=== PATIENT | male | born 1960 | race Caucasian/White ===

== ENCOUNTER 2023-11-24 18:28 | Emergency (ER) | payer OTHER, MEDICARE, SELFPAY ==
--- NOTE | 2023-11-24 18:37 | ED.URI ---
HPI - URI/Sore Throat General Chief Complaint: Upper Respiratory Infection Stated Complaint: Sinus Infection Symptoms Time Seen by Provider: 11/24/23 18:56 Source: patient and RN notes reviewed Mode of arrival: ambulatory Limitations: no limitations History of Present Illness HPI Narrative: 63 y/o male presented for c/o cough and chest congestion for over one week. Reports sob when walking into the clinic today. Taking DayQuil and NyQuil. Denies chest pain, palpitations, wheezing, n/v/d/f/c. MD elicited complaint: cough Related Data Home Medications Medication Instructions Recorded Confirmed atorvastatin 20 mg tablet 20 mg PO HS 11/24/23 11/24/23 bupropion HCl 300 mg 24 hr tablet, 300 mg PO QAM 11/24/23 11/24/23 extended release methylphenidate HCl 10 mg tablet 10 mg PO QPM 11/24/23 11/24/23 serdexmethylphenidate 52.3 1 cap PO QAM 11/24/23 11/24/23 mg-dexmethylphenidate 10.4 mg capsule (Azstarys) tadalafil 5 mg tablet 5 mg PO DAILY 11/24/23 11/24/23 tamsulosin 0.4 mg capsule 0.8 mg PO QHS 11/24/23 11/24/23 ticagrelor 60 mg tablet (Brilinta) 60 mg PO BID 11/24/23 11/24/23 zolpidem 5 mg tablet 5 mg PO HS PRN Insomnia 11/24/23 11/24/23 Review of Systems Review of Systems: CONSTITUTIONAL: denies malaise, chills, sweats, fever EYES: Denies visual changes, redness, or discharge ENT: denies rhinorrhea, congestion, sinus pain, otalgia, sore throat CARDIOVASCULAR: Denies chest pain, palpitations, edema RESPIRATORY: Reports cough, dyspnea GASTROINTESTINAL: Denies abdominal pain, nausea, vomiting, diarrhea SKIN: Denies rash or itching MUSCULOSKELETAL: denies myalgia NEUROLOGIC: repors headache [facility] Past Medical History Medical History (Updated 11/24/23 @ 19:14 by Jaja Alcaraz, JONI) CAD (coronary artery disease) Exam Narrative: GENERAL: Ill-appearing, nontoxic no acute distress. HEAD: Normocephalic EYES: PERRLA, conjunctivae clear ENT: Mucous membranes moist. TM pearly ruiz with dull light reflex bilaterally; no tragal tenderness. Oropharynx erythematous without lesions or exudate, no drooling, no hoarseness, no trismus, uvula midline. No tripod positioning, muffled voice, soft palate or pharyngeal wall bulging NECK: Supple. No lymphadenopathy CHEST: Clear to auscultation, breath sounds equal. No wheezing, rhonchi, rales, or stridor. No respiratory distress, speaks in full sentences. HEART: Regular rate and rhythm. No murmur heard. SKIN: Warm, dry, no rash. NEURO: Alert and oriented x3. PSYCH: Normal mood and affect Course Course Emergency Course: Patient is aware of diagnosis, understands and agrees to treatment plan. Anticipatory guidance given. Patient agrees to follow-up as directed and is aware of reasons to seek care at the emergency department. Portions of this record may have been created with voice recognition software Level of Care: Express Care Visit Vital Signs Vital signs: Vital Signs Temperature 98.3 F 11/24/23 18:45 Pulse Rate 100 11/24/23 18:45 Respiratory Rate 16 11/24/23 18:45 Blood Pressure 115/74 11/24/23 18:45 Pulse Oximetry 99 11/24/23 18:45 Temperature 98.3 F 11/24/23 18:45 Pulse Rate 100 11/24/23 18:45 Respiratory Rate 16 11/24/23 18:45 Blood Pressure 115/74 11/24/23 18:45 Pulse Oximetry 99 11/24/23 18:45 reviewed MDM - URI/Sore Throat MDM Narrative Medical decision making narrative: Discussed physical exam findings. Advised supportive measures and signs/symptoms to go to the ER. Pt is appropriate for outpt treatment and f/u. Differential Diagnosis Differential diagnosis: Likely upper respiratory infection, sinusitis and viral infection Discharge Plan Discharge Clinical Impression: Bronchitis Patient Disposition: Home, Self-Care Condition: Stable Instructions: Antibiotic Form, Acute Bronchitis (ED) Additional Instructions: Acute bronchitis can be contagious because it is usually caused by infection w
[2023-11-24 18:45] VITALS: BP 115/74; PULSE 100; RESP 16; TEMP 36.8; O2SAT 99
[2023-11-24 19:02] VITALS: BP 115/74; PULSE 100; RESP 16; TEMP 36.8; O2SAT 99
== END 2023-11-24 19:18 | disposition home or self-care (01) ==
PROVIDERS: Emergency Provider Nurse Practitioner Family
DX: J40 Bronchitis, not specified as acute or chronic (principal); I25.10 Atherosclerotic heart disease of native coronary artery without angina pectoris
CPT/HCPCS: 99213; G0463

== ENCOUNTER 2023-12-03 13:35 | Emergency (ER) | payer OTHER, MEDICARE, SELFPAY ==
--- NOTE | ~2023-12-03 | XR_ITS ---
XR chest 2V Ordering provider: Patricia Garza NP History: 63 years Male with . cough . Comparison: None. FINDINGS: MEDIASTINUM: The cardiac silhouette is not enlarged. LUNGS: No effusions or pneumothorax. Minimal opacification the left lower lobe is noted. OTHER: No free air under the diaphragm. Degenerative changes of the spine. IMPRESSION: Minimal opacification the left lower lobe suggestive of pneumonia. Follow-up advised. Reviewed, dictated and finalized at location A. IMPRESSION: Minimal opacification the left lower lobe suggestive of pneumonia. Follow-up ad vised.
[2023-12-03 14:19] VITALS: BP 123/75; PULSE 101; RESP 16; TEMP 36.8; O2SAT 98
--- NOTE | 2023-12-03 14:44 | ED.URI ---
HPI - URI/Sore Throat General Chief Complaint: Upper Respiratory Infection Stated Complaint: Bronchitis Time Seen by Provider: 12/03/23 14:44 Source: patient Mode of arrival: ambulatory Limitations: no limitations History of Present Illness HPI Narrative: 63-year-old male presents with complaint of cough and chest congestion for approximately 3 weeks. Patient was seen on November 23 and prescribed Augmentin for bronchitis. Has been off approximately 4 days shortness of exertion. Afebrile. All systems reviewed and negative except as noted above. Related Data Home Medications Medication Instructions Recorded Confirmed atorvastatin 20 mg tablet 20 mg PO HS 11/24/23 11/24/23 bupropion HCl 300 mg 24 hr tablet, 300 mg PO QAM 11/24/23 11/24/23 extended release methylphenidate HCl 10 mg tablet 10 mg PO QPM 11/24/23 11/24/23 serdexmethylphenidate 52.3 1 cap PO QAM 11/24/23 11/24/23 mg-dexmethylphenidate 10.4 mg capsule (Azstarys) tadalafil 5 mg tablet 5 mg PO DAILY 11/24/23 11/24/23 tamsulosin 0.4 mg capsule 0.8 mg PO QHS 11/24/23 11/24/23 ticagrelor 60 mg tablet (Brilinta) 60 mg PO BID 11/24/23 11/24/23 zolpidem 5 mg tablet 5 mg PO HS PRN Insomnia 11/24/23 11/24/23 Allergies Allergy/AdvReac Type Severity Reaction Status Date / Time No Known Allergies Allergy Verified 12/03/23 14:51 Review of Systems Review of Systems: CONSTITUTIONAL: Denies fever, chills, or sweats. EYES: Denies visual changes, redness, or discharge. ENT: Denies rhinorrhea, congestion, sore throat, or otalgia. CARDIOVASCULAR: Denies chest pain, palpitations, or edema. RESPIRATORY: Reports cough, chest congestion and dyspnea with exertion. GASTROINTESTINAL: Denies abdominal pain, nausea, vomiting, or diarrhea. GENITOURINARY: Denies dysuria or hematuria. SKIN: Denies rash or itching. MUSCULOSKELETAL: Denies back pain, joint pain, or myalgia. NEUROLOGIC: Denies headache, numbness, or weakness. PSYCHIATRIC: Denies anxiety or depression. All other systems reviewed are negative, except as documented in HPI. [facility] Past Medical History Medical History (Updated 12/03/23 @ 14:50 by Patricai Garza NP) CAD (coronary artery disease) Comments At time of signature, agree with nursing past medical, surgical, social and family history. There is no relevant family history pertinent to the presenting complaint. Exam Narrative: GENERAL: This is a well-nourished, well-developed patient, in no apparent distress. HEAD: normocephalic, atraumatic. EYES: PERRL. Sclera clear/white. Vision is grossly intact. EARS: External ears normal, auditory canals clear and without drainage, TMs normal without perforation. Hearing grossly intact. NOSE: External nose normal with no obvious nasal discharge, nares without redness, no rhinorrhea. THROAT: Mucous membranes moist, posterior pharynx clear. NECK: Neck supple, non-tender without lymphadenopathy, masses or thyromegaly. CARDIOVASCULAR: Regular rate and rhythm without murmurs, gallops, or rubs. RESPIRATORY: Rhonchi to bilateral lower lung heaton on auscultation. Breath sounds equal bilaterally. No wheezes, rales SKIN: warm, Dry, intact with no suspicious lesions or rash, good texture and turgor. NEURO: awake, alert, and oriented to person, place and time. There were no obvious focal neurologic abnormalities. EXTREMITIES: No joint tenderness, effusion, or edema noted. Course Course Level of Care: Express Care Visit Vital Signs Vital signs: Vital Signs Temperature 36.8 C 12/03/23 14:19 Pulse Rate 101 H 12/03/23 14:19 Respiratory Rate 16 12/03/23 14:19 Blood Pressure 123/75 12/03/23 14:19 Pulse Oximetry 98 12/03/23 14:19 Temperature 36.8 C 12/03/23 14:19 Pulse Rate 101 H 12/03/23 14:19 Respiratory Rate 16 12/03/23 14:19 Blood Pressure 123/75 12/03/23 14:19 Pulse Oximetry 98 12/03/23 14:19 Reviewed MDM - URI/Sore Throat MDM Narrative Medical decision m
== END 2023-12-03 15:01 | disposition home or self-care (01) ==
PROVIDERS: Emergency Provider Nurse Practitioner Family
DX: J18.9 Pneumonia, unspecified organism (principal); I25.10 Atherosclerotic heart disease of native coronary artery without angina pectoris
CPT/HCPCS: 71046; 99213; G0463

== ENCOUNTER 2023-12-09 17:21 | Emergency (ER) | payer OTHER, MEDICARE, SELFPAY ==
--- NOTE | ~2023-12-09 | XR_ITS ---
EXAMINATION: XR chest 2V DATE: 12/09/2023 17:44 INDICATION: Cough. Pneumonia. TECHNIQUE: Frontal and lateral views of the chest were obtained. COMPARISON: Chest 2 views 12/03/2023 FINDINGS: There is no pneumonia, pleural effusion, or pneumothorax. The heart size is normal. There i s mild chronic anterior wedging of multiple vertebral bodies. IMPRESSION: 1. No acute cardiopulmonary disease. Reviewed, dictated and finalized at location A.
--- NOTE | 2023-12-09 17:28 | ED.URI ---
HPI - URI/Sore Throat General Chief Complaint: Upper Respiratory Infection Stated Complaint: sob,congestion,cough Time Seen by Provider: 12/09/23 17:29 Source: patient, RN notes reviewed and old records reviewed Mode of arrival: ambulatory Limitations: no limitations History of Present Illness HPI Narrative: Patient recently treated for pneumonia presents today with continued cough and concerns that his pneumonia is not cleared. He reports cough is productive, he is still tired. Denies any shortness of breath or wheezing. Says chest feels very congested. Has associated sore, particularly when coughing. Afebrile. No other concerns or complaints today. Related Data Home Medications Medication Instructions Recorded Confirmed atorvastatin 20 mg tablet 20 mg PO HS 11/24/23 12/09/23 bupropion HCl 300 mg 24 hr tablet, 300 mg PO QAM 11/24/23 12/09/23 extended release methylphenidate HCl 10 mg tablet 10 mg PO QPM 11/24/23 12/09/23 serdexmethylphenidate 52.3 1 cap PO QAM 11/24/23 12/09/23 mg-dexmethylphenidate 10.4 mg capsule (Azstarys) tadalafil 5 mg tablet 5 mg PO DAILY 11/24/23 12/09/23 tamsulosin 0.4 mg capsule 0.8 mg PO QHS 11/24/23 12/09/23 ticagrelor 60 mg tablet (Brilinta) 60 mg PO BID 11/24/23 12/09/23 zolpidem 5 mg tablet 5 mg PO HS PRN Insomnia 11/24/23 12/09/23 Allergies Allergy/AdvReac Type Severity Reaction Status Date / Time No Known Allergies Allergy Verified 12/03/23 14:51 Review of Systems Review of Systems: All systems reviewed & are unremarkable except as noted in HPI and below Constitutional: Constitutional: Reports as per HPI, Reports no additional constitutional complaints and Reports lethargy ENT: Reports system reviewed and no additional complaints, except as documented and Reports sore throat Cardiovascular: Cardiovascular: Reports no additional cardiovascular complaints Respiratory: Respiratory: Reports no additional respiratory complaints, Reports change in phlegm color, Reports chest congestion, Reports cough and Reports pain with cough Gastrointestinal: Gastrointestinal: Reports no additional gastrointestinal complaints PMFSH Past Medical History Medical History (Updated 12/10/23 @ 00:01 by Background Daemon) CAD (coronary artery disease) Comments At the time of my signature, I reviewed and agree with the nursing past medical, surgical, social, and family history. There is no relevant family history pertinent to the patient complaint. Exam Const: General: cooperative, no acute distress, alert and awake Orientation/consciousness: oriented to person, oriented to place and oriented to time HENMT: Head: normal to inspection Ears: TM's normal bilaterally Mouth: Yes moist mucous membranes Resp: Effort & Inspection: normal respiratory effort and able to speak in complete sentences Auscultation: clear to auscultation bilaterally, no crackles, no rales, no rhonchi and no wheezes Other: Congested cough noted Cardio: Palpation: normal PMI Rate: regular rate Rhythm: regular rhythm Heart sounds: S1 normal heart sound present and S2 normal heart sound present Neuro: General: oriented to person, oriented to place and oriented to time Cranial nerves: Yes CN's II-XII intact bilaterally Psych: Appearance: grossly normal Thought process: Normal thought process present Insight: Good insight present (Psych) Judgement: Good judgement present (Psych) Course Course Level of Care: Express Care Visit Vital Signs Vital signs: Vital Signs Temperature 97.7 F 12/09/23 17:32 Pulse Rate 105 H 12/09/23 17:32 Respiratory Rate 16 12/09/23 17:32 Blood Pressure 123/71 12/09/23 17:32 Pulse Oximetry 99 12/09/23 17:32 Temperature 97.7 F 12/09/23 17:32 Pulse Rate 105 H 12/09/23 17:32 Respiratory Rate 16 12/09/23 17:32 Blood Pressure 123/71 12/09/23 17:32 Pulse Oximetry 99 12/09/23 17:32 Reviewed MDM - URI/Sore Throat MDM Narrative Medical de
[2023-12-09 17:32] VITALS: BP 123/71; PULSE 105; RESP 16; TEMP 36.5; O2SAT 99
== END 2023-12-09 18:16 | disposition home or self-care (01) ==
PROVIDERS: Emergency Provider Nurse Practitioner Family
DX: R05.9 Cough, unspecified (principal); I25.10 Atherosclerotic heart disease of native coronary artery without angina pectoris
CPT/HCPCS: 71046; 99213; G0463

== ENCOUNTER 2024-01-28 12:02 | Emergency (ER) | payer OTHER, MEDICARE, SELFPAY ==
--- NOTE | 2024-01-28 12:10 | ED.URI ---
HPI - URI/Sore Throat General Chief Complaint: Upper Respiratory Infection Stated Complaint: Upper Respiratory Symptoms Time Seen by Provider: 01/28/24 12:10 Source: patient Mode of arrival: ambulatory Limitations: no limitations History of Present Illness HPI Narrative: [age] year old male presents with complaint of nasal congestion, sinus pressure, postnasal drainage, coughing for 10 days. Patient reports that sinus congestion worse over the past few days. Feels feverish. Blowing out and coughing up green drainage. No chest pain or shortness of breath. Patient taking Tessalon Perles from previous prescription. Patient is scheduled for bladder surgery on February 05. Would like to ?clear up his symptoms ?prior to surgery. All systems reviewed and negative except as noted above. Related Data Home Medications Medication Instructions Recorded Confirmed atorvastatin 20 mg tablet 20 mg PO HS 11/24/23 12/09/23 bupropion HCl 300 mg 24 hr tablet, 300 mg PO QAM 11/24/23 12/09/23 extended release methylphenidate HCl 10 mg tablet 10 mg PO QPM 11/24/23 12/09/23 serdexmethylphenidate 52.3 1 cap PO QAM 11/24/23 12/09/23 mg-dexmethylphenidate 10.4 mg capsule (Azstarys) tadalafil 5 mg tablet 5 mg PO DAILY 11/24/23 12/09/23 tamsulosin 0.4 mg capsule 0.8 mg PO QHS 11/24/23 12/09/23 ticagrelor 60 mg tablet (Brilinta) 60 mg PO BID 11/24/23 12/09/23 zolpidem 5 mg tablet 5 mg PO HS PRN Insomnia 11/24/23 12/09/23 Allergies Allergy/AdvReac Type Severity Reaction Status Date / Time No Known Allergies Allergy Verified 01/28/24 12:16 Review of Systems Review of Systems: CONSTITUTIONAL: Reports fever, chills, or sweats. EYES: Denies visual changes, redness, or discharge. ENT: Reports rhinorrhea, congestion, sinus pressure. Denies sore throat, or otalgia. CARDIOVASCULAR: Denies chest pain, palpitations, or edema. RESPIRATORY: Reports cough. Denies dyspnea. GASTROINTESTINAL: Denies abdominal pain, nausea, vomiting, or diarrhea. GENITOURINARY: Denies dysuria or hematuria. SKIN: Denies rash or itching. MUSCULOSKELETAL: Denies back pain, joint pain, or myalgia. NEUROLOGIC: Denies headache, numbness, or weakness. PSYCHIATRIC: Denies anxiety or depression. All other systems reviewed are negative, except as documented in HPI. [facility] Past Medical History Medical History (Updated 01/28/24 @ 12:24 by Patricia Garza NP) CAD (coronary artery disease) Comments At time of signature, agree with nursing past medical, surgical, social and family history. There is no relevant family history pertinent to the presenting complaint. Exam Narrative: GENERAL: This is a well-nourished, well-developed patient, in no apparent distress. HEAD: normocephalic, atraumatic. EYES: PERRL. Sclera clear/white. Vision is grossly intact. EARS: External ears normal, auditory canals clear and without drainage, TMs normal without perforation. Hearing grossly intact. NOSE: External nose normal with nasal congestion, purulent nasal drainage, erythema and swelling to bilateral nares. Bilateral maxillary sinus tenderness on palpation. THROAT: Mucous membranes moist, erythema with mild swelling, postnasal drainage. No exudates. NECK: Neck supple, non-tender without lymphadenopathy, masses or thyromegaly. CARDIOVASCULAR: Regular rate and rhythm without murmurs, gallops, or rubs. RESPIRATORY: Clear to auscultation. Breath sounds equal bilaterally. No wheezes, rales, or rhonchi. SKIN: warm, Dry, intact with no suspicious lesions or rash, good texture and turgor. NEURO: awake, alert, and oriented to person, place and time. There were no obvious focal neurologic abnormalities. EXTREMITIES: No joint tenderness, effusion, or edema noted. Course Course Level of Care: Express Care Visit Vital Signs Vital signs: Vital Signs Temperature 36.6 C 01/28/24 12:11 Pulse Rate 71 01/28/24 12:11 Respiratory Rate 16 01/28/24 12:11 Blood Pressure 137/86 01/28/24 12:11 Pulse Oximetry 98 01/28/24 12:11 Temperature 36.6 C 01/28/24 12:11 Pulse Rate 71 01/28/24 12:11 Respiratory Rate 16 01/28/24 12:11 Blood Pressure 137/86 01/28/24 12:11 Pulse Oximetry 98 01/28/24 12:11 Reviewed MDM - URI/Sore Throat MDM Narrative Medical decision making narrative: Lungs clear to auscultation. Will treat patient for bacterial sinusitis due to duration of symptoms and exam findings. Patient agrees with plan of care. Patient is aware of diagnosis, understands and agrees to treatment plan. Anticipatory guidance given. Patient agrees to follow-up as directed and is aware of reasons to seek care at the emergency department. Portions of this record may have been created with voice recognition software Differential Diagnosis Differential diagnosis: Likely upper respiratory infection, sinusitis and viral infection Discharge Plan Discharge Clinical Impression: Acute bacterial sinusitis Patient Disposition: Home, Self-Care Condition: Stable Instructions: Antibiotic Form, Sinusitis (ED) Additional Instructions: Take medications as prescribed. Take ibuprofen or Tylenol every 6-8 hours as needed for pain and fever. Drink at least 64 oz of water a day. Follow-up with your doctor if symptoms are not improving. Prescriptions: New doxycycline hyclate 100 mg capsule 100 mg PO BID 7 Days Qty: 14 0RF methylprednisolone [Medrol ([place])] 4 mg tablets,dose pack See Rx Instructions PO .COMPLEX Qty: 21 0RF Rx Instructions: orally per package directions fluticasone propionate [Flonase Allergy Relief] 50 mcg/actuation spray,suspension 1 spray intranasal BID Qty: 16 0RF Rx Instructions: administer into each nostril benzonatate 200 mg capsule 200 mg PO TID PRN (Reason: cough) Qty: 20 0RF No Action atorvastatin 20 mg tablet 20 mg PO HS methylphenidate HCl 10 mg tablet 10 mg PO QPM tamsulosin 0.4 mg capsule 0.8 mg PO QHS zolpidem 5 mg tablet 5 mg PO HS PRN (Reason: Insomnia) bupropion HCl 300 mg tablet extended release 24 hr 300 mg PO QAM tadalafil 5 mg tablet 5 mg PO DAILY Brilinta 60 mg tablet 60 mg PO BID Azstarys 52.3 mg- 10.4 mg capsule 1 cap PO QAM benzonatate 200 mg capsule 200 mg PO TID PRN (Reason: cough) Qty: 20 0RF albuterol sulfate [Ventolin HFA] 90 mcg/actuation HFA aerosol inhaler 2 puff inhalation QID PRN (Reason: shortness of breath or wheezing) Qty: 8.5 0RF Follow-up/Referrals: PHYSICIAN,[employer] PL[employer] SUPERVISOR [Primary Care Provider] - Time of Disposition: 12:24
[2024-01-28 12:11] VITALS: BP 137/86; PULSE 71; RESP 16; TEMP 36.6; O2SAT 98
== END 2024-01-28 12:27 | disposition home or self-care (01) ==
PROVIDERS: Emergency Provider Nurse Practitioner Family
DX: J01.90 Acute sinusitis, unspecified (principal); B96.89 Other specified bacterial agents as the cause of diseases classified elsewhere; I25.10 Atherosclerotic heart disease of native coronary artery without angina pectoris
CPT/HCPCS: 99213; G0463

== ENCOUNTER 2024-08-28 14:45 | Outpatient (RCR) | payer MEDICARE, OTHER, SELFPAY ==
--- NOTE | 2024-06-21 10:11 | OPREHPOC ---
Outpatient Therapy Plan of Care This is a Multidisciplinary Plan of Care that may contain components documented by all disciplines (PT, OT, and ST.) PT Problem 1 PT Problem #1 Knowledge Deficit PT Goal 1 Goal / Goal Update 1. Pt to be IND with issued HEP Target Visit 8 PT Problem 2 PT Problem #2 Pain PT Goal 1 Goal / Goal Update 1. Pt to report shoulder pain no greater than 3/10 in the last week 2. Pt to report no more than 20% disability on the quick DASH Target Visit 8 PT Problem 3 PT Problem #3 Impaired Range of Motion PT Goal 1 Goal / Goal Update 1. Pt to improve active shoulder flexion ROM to 150 deg 2. Pt to improve active shoulder abduction ROM to 130 deg Target Visit 8 PT Problem 4 PT Problem #4 Impaired Strength PT Goal 1 Goal / Goal Update 1. Pt to demonstrate shoulder strength grossly 4+/ 5 when protocol allows. Target Visit 20
--- NOTE | 2024-06-21 10:11 | PTOPEVAL1 ---
Assessment and note entered by Lupe Pedraza, PT, DPT Evaluation Information Assessment Status Evaluation Diagnosis R shoulder RTC repair ICD-10 Condition Codes (PT) Pain in right shoulder M25.511,Encounter for other orthopedic aftercare Z47.89 Onset 06/05/24 Subjective Information Pt states he had a large full thickness supraspinatus tear and a bone spur that was repaired during surgery on 06/05/24. 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 Reported Pain Level Pain Score 1: Self Report Assessment PT Clinical Summary Pt present to therapy today for his initial evaluation following a R RTC repair and subacromial decompression. He demonstrates s/s consistent with his diagnosis. Both active and passive ROM are significantly limited compared to his uninvolved shoulder. Skilled therapy services are indicated to progress ROM, progress strength as protocol allows, and to return to PLOF. Plan of Care Interventions Electrical Stimulation,Hot Pack/Cold Pack,Manual Therapy,Neuro Re-education,Patient/Caregiver Education,Therapeutic Activities,Therapeutic Exercise PT Services Indicated Yes Treatment Frequency and 2x/wk for 10 visits Duration These treatments will address the objective and functional deficits as defined above. The patient will be advanced safely and appropriately in order for the patient to progress towards his/her prior level of function. Additional exercises will be introduced and as well as a comprehensive home exercise program upon discharge, if needed, ?to ensure carryover of functional gains achieved in the clinic. This treatment plan has been reviewed and agreement upon by the patient.
--- NOTE | 2024-07-27 11:02 | PCPTNOTE ---
Patient was a No Show/No Call. Called patient and he reported that he was not feeling well and needed to cancel.
--- NOTE | 2024-07-31 16:26 | OPREHPOC ---
Outpatient Therapy Plan of Care This is a Multidisciplinary Plan of Care that may contain components documented by all disciplines (PT, OT, and ST.) PT Problem 1 PT Problem #1 Knowledge Deficit PT Goal 1 Goal / Goal Update 1. Pt to be IND with issued HEP Target Visit 8 Progress Met PT Problem 2 PT Problem #2 Pain PT Goal 1 Goal / Goal Update 1. Pt to report shoulder pain no greater than 3/10 in the last week 2. Pt to report no more than 20% disability on the quick DASH Target Visit 16 Progress Partially Met PT Problem 3 PT Problem #3 Impaired Range of Motion PT Goal 1 Goal / Goal Update 1. Pt to improve active shoulder flexion ROM to 160 deg 2. Pt to improve active shoulder abduction ROM to 130 deg 3. Pt to improve active shoulder external rotation to 80 deg Target Visit 16 Progress Partially Met PT Problem 4 PT Problem #4 Impaired Strength PT Goal 1 Goal / Goal Update 1. Pt to demonstrate shoulder strength grossly 4+/ 5 when protocol allows. Target Visit 20 Progress Partially Met
--- NOTE | 2024-07-31 16:26 | PTOPPROG ---
Assessment and note entered by Ziggy Rangel, PT Evaluation Information Assessment Status Progress Diagnosis R shoulder RTC repair ICD-10 Condition Codes (PT) Pain in right shoulder M25.511,Encounter for other orthopedic aftercare Z47.89 Onset 06/05/24 Subjective Information Patient reports that overall the process has felt very slow. He demonstrates understanding that he needs to allow time to heal but needs to move his shoulder. He is concerned about losing motion from not pushing it but states that it hurts to push it. Reports understanding of focal exercising to improve mcfp mobility and function within non painful arc. Assessment PT Clinical Summary Patient is making significant functional progress in shoulder ROM and strength but still shows limitation. Needs continued reinforcement of shoulder ROM with progression to strengthening as needed and tolerated. Need continued emphasis on external rotation and flexion. Plan of Care Interventions Electrical Stimulation,Hot Pack/Cold Pack,Manual Therapy,Neuro Re-education,Patient/Caregiver Education,Therapeutic Activities,Therapeutic Exercise PT Services Indicated Yes Treatment Frequency and 2x/week for 8 visits Duration These treatments will address the objective and functional deficits as defined above. The patient will be advanced safely and appropriately in order for the patient to progress towards his/her prior level of function. Additional exercises will be introduced and as well as a comprehensive home exercise program upon discharge, if needed, ?to ensure carryover of functional gains achieved in the clinic. This treatment plan has been reviewed and agreement upon by the patient.
--- NOTE | 2024-08-21 15:41 | PCPTNOTE ---
Patient canceled appointment this date due to being out of town.
--- NOTE | 2024-08-24 10:11 | PCPTNOTE ---
Patient called to cancel this date due to being out of town.
--- NOTE | 2024-08-28 15:46 | PTOPDC ---
Assessment and note entered by Ziggy Rangel, PT Evaluation Information Assessment Status Discharge Diagnosis R shoulder RTC repair ICD-10 Condition Codes (PT) Pain in right shoulder M25.511,Encounter for other orthopedic aftercare Z47.89 Onset 06/05/24 Subjective Information Reports that he feels he is doing much better. Motion feels great. Still having trouble reaching behind his head at end range and behind the back. Will continue exercising and feels good with his strengthening activity that he has been instructed on. Reported Pain Level Pain Score 2: Self Report Assessment PT Clinical Summary Patient has seen excellent progress in shoulder mobility and strength at this point in rehab. Overall he continues to show some weakness which can be addressed through continued strengthening activity. Patient is compliant and understanding of HEP and is suitable for discharge at this time. Plan of Care PT Services Indicated Yes
== END 2024-08-29 07:51 | disposition home or self-care (01) ==
LOC: ANHGOSHPT 14:45
DX: M25.511 Pain in right shoulder (principal); M75.101 Unspecified rotator cuff tear or rupture of right shoulder, not specified as traumatic
CPT/HCPCS: 97014; 97110; 97140; 97161; 97530; G0283

== ENCOUNTER 2025-01-29 13:03 | Emergency (ER) | payer MEDICARE, OTHER, SELFPAY ==
--- NOTE | ~2025-01-29 | XR_ITS ---
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 Technique: 2 views obtained. Findings: The lungs are clear, no effusion. No pneumothorax. Heart is normal size. Mediastinal and hilar contours are within normal limits. Bony thorax no acute abnormality. Impression: No acute cardiopulmonary abnormality. Reviewed, dictated and finalized at location P. NGUAL TEACHER AIDE Impression: No acute cardiopulmonary abnormality.
[2025-01-29 13:13] VITALS: BP 130/85; PULSE 101; RESP 16; TEMP 36.4; O2SAT 100
--- NOTE | 2025-01-29 13:17 | ED.URI ---
HPI - URI/Sore Throat General Chief Complaint: Upper Respiratory Infection Stated Complaint: FEVER/SINUS/WEAKNESS/COUGH/CONGESTION/GLANDS Time Seen by Provider: 01/29/25 13:18 Source: patient, RN notes reviewed and old records reviewed Mode of arrival: ambulatory Limitations: no limitations History of Present Illness HPI Narrative: 64-year-old male presents to the [facility] with intermittent 3 weeks of increasing sinus pressure, cough, congestion, generalized weakness. Return from [place] 3 weeks ago when the symptoms started. Denies any nausea or vomiting. Patient denies chest pain, leg swelling or shortness of breath. States that he also has a bump to the right anterior axilla. Has taken DayQuil and NyQuil Onset (ago): week(s) (3) Related Data Home Medications ?Medication ?Instructions ?Recorded ?Confirmed ?Last Taken ?Type atorvastatin 20 mg tablet 20 mg PO HS 11/24/23 01/29/25 Unknown History bupropion HCl 300 mg 24 hr tablet, 300 mg PO QAM 11/24/23 01/29/25 Unknown History extended release methylphenidate HCl 10 mg tablet 10 mg PO QPM 11/24/23 01/29/25 Unknown History serdexmethylphenidate 52.3 1 cap PO QAM 11/24/23 01/29/25 Unknown History mg-dexmethylphenidate 10.4 mg capsule (Azstarys) tadalafil 5 mg tablet 5 mg PO DAILY 11/24/23 01/29/25 Unknown History tamsulosin 0.4 mg capsule 0.8 mg PO QHS 11/24/23 01/29/25 Unknown History ticagrelor 60 mg tablet (Brilinta) 60 mg PO BID 11/24/23 01/29/25 Unknown History zolpidem 5 mg tablet 5 mg PO HS PRN Insomnia 11/24/23 01/29/25 Unknown History Allergies Allergy/AdvReac Type Severity Reaction Status Date / Time No Known Allergies Allergy Verified 01/29/25 13:14 Review of Systems Review of Systems: All systems reviewed & are unremarkable except as noted in HPI and below Constitutional: Constitutional: Reports as per HPI ENT: Reports as per HPI Cardiovascular: Cardiovascular: Reports no additional cardiovascular complaints, Denies chest pain and Denies dyspnea Respiratory: Respiratory: Reports as per HPI, Denies chest congestion, Reports cough and Denies dyspnea Musculoskeletal: Musculoskeletal: Reports no additional musculoskeletal complaints Integumentary/Breasts: Skin/Breast: Reports as per [facility] Past Medical History Medical History CAD (coronary artery disease) Comments At the time of my signature, I reviewed and agree with the nursing past medical, surgical, social, and family history. There is no relevant family history pertinent to the patient complaint. Exam Const: General: cooperative, healthy appearing, comfortable, no acute distress, well developed, alert and well nourished Nutritional Appearance: well nourished Orientation/consciousness: patient oriented x3 Limitations: no limitations HENMT: Head: normal to inspection Ears: hearing grossly normal bilaterally, external ears normal, EAC's normal, mastoids normal and no periauricular adenopathy Mouth: Yes Normal oral and palatal mucosa present, Yes lip normal, Yes tongue normal and Yes moist mucous membranes Throat: posterior oropharynx normal, uvula midline and no uvular edema Eyes: General: appearance normal, both eyes and all related structures Alignment and Position: alignment normal Neck: Neck: normal visual inspection, full ROM, no lymphadenopathy and no meningeal signs Chest: Chest palpation & inspection: normal inspection of the chest Resp: Effort & Inspection: normal respiratory effort and able to speak in complete sentences Auscultation: no crackles, no rales, no rhonchi and wheezes expiratory wheezes and right lower Cardio: Rate: regular rate Skin: General skin exam: normal color and no rashes or lesions noted Full body images:  1. 1 cm movable common firm cyst-like structure, no fluctuance, no erythema, no bruising. Neuro: General: patient oriented x3, gait normal, moves all extremities and no meningeal signs Cognition (Neuro): normal cognition Speech: normal speech Gait exam (Neuro): Normal gait present Extrem: General: normal to inspection, full ROM, capillary refill normal and normal gait Psych: Appearance: grossly normal and well kempt Mental Status: mental status grossly normal Speech and movement: Normal speech and movement present and Clear speech present Affect: normal affect Attitude: cooperative Course Course Level of Care: Express Care Visit Vital Signs Vital signs: Vital Signs Oxygen Delivery Room Air 01/29/25 13:10 Temperature 97.6 F 01/29/25 13:13 Pulse Rate 101 H 01/29/25 13:13 Respiratory Rate 16 11/25/25 13:13 Blood Pressure 130/85 01/29/25 13:13 Pulse Oximetry 100 01/29/25 13:13 Oxygen Delivery Room Air 01/29/25 13:10 Reviewed MDM - URI/Sore Throat MDM Narrative Medical decision making narrative: Patient sitting in exam. Patient is nontoxic, vitals stable. Patient presents with 3 weeks of URI symptoms as well as a cyst-like structure to the right axilla. Patient denies any chest pain, leg swelling or shortness of breath. patient x-ray negative for acute findings however due to length of symptoms will cover with doxycycline, albuterol for the wheezing. discussed following up with primary or Dermatology for the cyst-like structure to the axilla. Patient is appropriate for outpatient treatment with close Discharge instructions reviewed with patient, as well as provided in writing per nursing staff. The instructions also include specific and strict return/GO TO THE ER as well as f/u information. All questions have been answered, and the patient deny any further questions with discharge and discharge plan. Some parts of this dictation were generated by voice recognition software and may contain typographical and/or grammatical inaccuracies. 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 Technique: 2 views obtained. Findings: The lungs are clear, no effusion. No pneumothorax. Heart is normal size. Mediastinal and hilar contours are within normal limits. Bony thorax no acute abnormality. Impression: No acute cardiopulmonary abnormality. Critical Care Time Critical Care Time Critical Care Time: No Discharge Plan Discharge Clinical Impression: Bronchitis, Cyst Sinusitis Qualifiers: Sinusitis location: unspecified location Chronicity: acute Recurrence: not specified as recurrent Qualified Code(s): J01.90 - Acute sinusitis, unspecified Patient Disposition: Home Condition: Stable Instructions: Antibiotic Form, Acute Bronchitis (ED) Additional Instructions: It is very important to treat your symptoms. Drink plenty of water, Gatorade, Pedialyte, ice pops or Jell-O. -Alternate Tylenol and Motrin per package directions for fever or pain. You can alternate every 4 hours -Antihistamine medication such as Zyrtec/Claritinduring the day can help improve symptoms. -doing daily nasal irrigations can help relieve pressure your sinuses. Things like a Neti pot -Use Flonase twice a day for 5 days then daily to help reduce the inflammation and dry up your sinuses. -You can also use Mucinex. Be sure to drink plenty of water with this medication at least 8 ounces with every dose and it is important to drink 8 to 10 glasses of water per day. Water is a natural decongestant -Eat and drink things that are easy to swallow, like tea or soup, or popsicles. -Oral rinses such as: Salt water gargles and/or may use topical anesthetic (eg. Chloraseptic spray) or lozenges to relieve dryness or throat pain). -Frequent hand washing or hand remediation bioanalytics consultant is one of the best ways to prevent spread of infection. -Using a vaporizer or humidifier at night will also help thin secretions and help with coughing up phlegm. -Follow up with primary care provider in 7-10 days if condition is not improving. follow-up with your primary care provider if the cyst-like structure becomes irritating for further evaluation Or follow-up with dermatology - For new or worsening symptoms go directly to the nearest ER Patient Language: Citizen Of [place] Prescriptions: New doxycycline monohydrate 100 mg tablet 100 mg PO BID Qty: 14 0RF albuterol sulfate 90 mcg/actuation HFA aerosol inhaler 2 puff inhalation QID PRN (Reason: shortness of breath or wheezing) Qty: 6.7 0RF (DME) Aerochamber MV Spacer See Rx Instructions .Route Qty: 1 0RF Rx Instructions: As directed No Action atorvastatin 20 mg tablet 20 mg PO HS methylphenidate HCl 10 mg tablet 10 mg PO QPM tamsulosin 0.4 mg capsule 0.8 mg PO QHS zolpidem 5 mg tablet 5 mg PO HS PRN (Reason: Insomnia) bupropion HCl 300 mg tablet extended release 24 hr 300 mg PO QAM tadalafil 5 mg tablet 5 mg PO DAILY ticagrelor [Brilinta] 60 mg tablet 60 mg PO BID Azstarys 52.3 mg- 10.4 mg capsule 1 cap PO QAM benzonatate 200 mg capsule 200 mg PO TID PRN (Reason: cough) Qty: 20 0RF doxycycline hyclate 100 mg capsule 100 mg PO BID 7 Days Qty: 14 0RF methylprednisolone [Medrol ([place])] 4 mg tablets,dose pack See Rx Instructions PO .COMPLEX Qty: 21 0RF Rx Instructions: orally per package directions fluticasone propionate [Flonase Allergy Relief] 50 mcg/actuation spray,suspension 1 spray intranasal BID Qty: 16 0RF Rx Instructions: administer into each nostril benzonatate 200 mg capsule 200 mg PO TID PRN (Reason: cough) Qty: 20 0RF albuterol sulfate [Ventolin HFA] 90 mcg/actuation HFA aerosol inhaler 2 puff inhalation QID PRN (Reason: shortness of breath or wheezing) Qty: 8.5 0RF Follow-up/Referrals: Juan Carlos,Estephanie [Other] Stand Alone Forms: Work/School Release IP Time of Disposition: 13:56
== END 2025-01-29 14:00 | disposition home or self-care (01) ==
PROVIDERS: Emergency Provider Nurse Practitioner
DX: J40 Bronchitis, not specified as acute or chronic (principal); L72.9 Follicular cyst of the skin and subcutaneous tissue, unspecified; J01.90 Acute sinusitis, unspecified; I25.10 Atherosclerotic heart disease of native coronary artery without angina pectoris
CPT/HCPCS: 71046; 99213; G0463